=== PATIENT | male | born 1950 | race Caucasian/White ===

== ENCOUNTER → 2024-12-15 | Outpatient (CLI) | payer MEDICARE ==
[~2024-12-15] MED LIST: GADOTERATE MEGLUMINE 10 MMOL/20 ML VIAL IV ONE
--- NOTE | 2024-12-15 18:05 | HMCIMG ---
MR NECK WWO HISTORY: Tonsillar cancer COMPARISON: None TECHNIQUE: MRI of the neck was performed utilizing multiple pulse sequences in axial, coronal and sagittal planes. Patient was given 17 cc of Clariscan through intravenous route. FINDINGS: There are motion artifacts degrading image quality. There are degenerative changes mid cervical spine spondylosis and central canal narrowing. There is a mucoperiosteal thickening or air-fluid level is seen of the paranasal sinuses. There is paramagnetic susceptibility artifacts noted near the right mandible limiting evaluation. Normal size cervical lymph nodes are seen. Slight asymmetric increased enhancement is noted of the right floor mouth with subtle manifestation of completely excluded. Clinical correlation is recommended. This area is obscured by artifacts. IMPRESSION: 1. Findings as described above
== END | disposition home or self-care (01) ==
LOC: RAH 11:10
PROVIDERS: ATTEND Physician Assistant Medical
DX: K14.8 Other diseases of tongue (principal); M47.812 Spondylosis without myelopathy or radiculopathy, cervical region; M48.02 Spinal stenosis, cervical region
CPT/HCPCS: 70543; A9575